=== PATIENT | female | born 1945 | race Two or more races ===

== ENCOUNTER 2024-10-08 15:06 | Inpatient (IN) | payer OTHER ==
[~2024-10-08] VITALS: Ht 152.4 cm; Wt 47.6 kg
--- NOTE | 2024-10-08 15:28 | ED.PDOC ---
History of Present Illness HPI Comments 79-year-old female brought in by EMS presents with a chief complaint of muscle pain and hip pain s/p mechanical fall at home. Patient had a ground-level mechanical fall at home and landed on her left side. Patient is now presenting with pain to her left hip, left knee, and left ankle. Patient has no deformities to any of her extremities, did not hit her head, and had no loss of consciousness. Patient is alert and oriented. No other symptoms or modifying factors present at this time. Patient received fentanyl in the field and states that most of her pain is currently controlled. Vital signs were stable on arrival. Chief Complaint: Fall Injury Time Seen by MD: 15:26 Reviewed Notes: Nurses Notes, Auto Clutch Specialist Notes, Medications, Allergies Allergies: Coded Allergies: NO KNOWN ALLERGIES (Unverified , 10/08/24) Information Source: Patient, Emergency Med Personnel Mode of Arrival: EMS Severity: Moderate Timing: Minutes Duration: Since onset Prehospital treatment: None Past Medical History PAST MEDICAL HISTORY: Denies Surgical History: Denies all surgeries REGIONAL AGRONOMIST History: No Pertinent REGIONAL AGRONOMIST History Family History Family History: Reviewed,noncontributory to illness Social History Smoker: Non-Smoker Alcohol: Denies ETOH Use Drugs: Denies Drug Use Lives In: Home Constitutional: denies: chills, diaphoresis, fatigue, fever, malaise, sweats, weakness, others EENTM: denies: blurred vision, double vision, ear bleeding, ear discharge, ear drainage, ear pain, ear ringing, eye pain, eye redness, hearing loss, mouth pain, mouth swelling, nasal discharge, nose bleeding, nose congestion, nose pain, photophobia, tearing, throat pain, throat swelling, voice changes, others Respiratory: denies: cough, hemoptysis, orthopnea, SOB at rest, shortness of breath, SOB with excertion, stridor, wheezing, others Cardiovascular: denies: chest pain, dizzy spells, diaphoresis, Dyspnea on exertion, edema, irregular heart beat, left arm pain, lightheadedness, palpitations, PND, syncope, others Gastrointestinal: denies: abdomen distended, abdominal pain, blood streaked bowels, constipated, diarrhea, dysphagia, difficulty swallowing, hematemesis, melena, nausea, poor appetite, poor fluid intake, rectal bleeding, rectal pain, vomiting, others Genitourinary: denies: abnormal vagina bleeding, burning, dyspareunia, dysuria, flank pain, frequency, hematuria, incontinence, pain, , vagina discharge, urgency, others Neurological: denies: dizziness, fainting, headache, left sided numbness, left sided weakness, numbness, paresthesia, pre-existing deficit, right sided numbness, right sided weakness, seizure, speech problems, tingling, tremors, weakness, others Musculoskeletal: reports: joint pain, muscle pain; denies: back pain, gout, joint swelling, muscle stiffness, neck pain, others Integumetry: denies: bruises, change in color, change in hair/nails, dryness, laceration, lesions, lumps, rash, wounds, others Allergic/Immunocompromised: denies: Difficulty Healing, Frequent Infections, Hives, Itching, others Hematologic/Lymphatic: denies: anemia, blood clots, easy bleeding, easy bruising, swollen glands, others Endocrine: denies: excessive hunger, excessive sweating, excessive thirst, excessive urination, flushing, intolerance to cold, intolerance to heat, unexplained weight gain, unexplained weight loss, others Psychiatric: denies: anxiety, bipolar disorder, depression, hopeless, panic disorder, schizophrenia, sleepless, suicidal, others All Other Systems: Reviewed and Negative Physical Exam General Appearance: Mild Distress (Patient was in mild distress status post fentanyl dosing by EMS. Most of the pain has been controlled.), Normal HEENT: Normal ENT Inspection, Pharynx Normal, TMs Normal Neck: Full Range of Motion, Non-Tender, Normal, Normal Inspection Respiratory: Chest Non-Tender, Lungs Clear, No Accessory Muscle Use, No Respiratory Distress, Normal Breath Sounds Cardiovascular: No Edema, No JVD, No Murmur, No Gallop, Normal Peripheral Pulses, Regular Rate/Rhythm Breast Exam: Deferred Gastrointestinal: No Organomegaly, Non Tender, No Pulsatile Mass, Normal Bowel Sounds, Soft Genitalia: Deferred Pelvic: Deferred Rectal: Deferred Extremities: Other (Diffuse left-sided hip pain extending into the pubic symphysis region. Pain extends down the patient's leg and bypasses the knee but continues into the ankle and foot. Significant reduced range of motion from the hip distally. Distal neurovascularly intact.) Musculoskeletal : Apperance: Normal Neurologic: Alert, Normal Affect, Normal Mood Cerebellar Function: NOT DONE Reflexes: NOT DONE Skin: Dry, Normal Color, Warm Lymphatic: No Adenopathy Was a procedure done? Was a procedure done?: No Differential Dx Considerations may include: Hip fracture, pelvic fracture, femoral fracture, knee fracture, tib-fib fracture, ankle fracture, hip contusion, fall X-Ray, Labs, Meds, VS Vital Signs Date Time Temp Pulse Resp B/P (MAP) Pulse Ox O2 Delivery O2 Flow Rate FiO2 10/08/24 15:20 98.6 62 12 133/65 (87) 97 98.6 10/08/24 15:20 98.6 62 12 133/65 (87) 97 X-Ray, Labs, Meds, VS Comment All studies performed the ED were evaluated by me personally. Imaging studies revealed an acutely mildly displaced fractures of the left superior and inferior pubic rami. Patient will be admitted for pain management, orthopedic evaluation and probable care home transfer. Time of 1ST Reevaluation: 17:09 Reevaluation 1ST: Improved Consultation: PCP, Other (Orthopedist) Patient Education/Counseling: Diagnosis, Treatment, Prognosis Family Education/Counseling: Diagnosis, Treatment, Prognosis Departure 1 Departure Time of Disposition: 17:10 Impression: Primary Impression: Fracture of pubic ramus Disposition: 09 ADMITTED INPATIENT Condition: Stable Discharged With: Self Critical Care Note Critical Care Time?: No Stability Stability form required: No I personally scribed for KIKO BAZZI PAC ([email or web address]) on 10/08/24 at 15:28. Electronically submitted by William Eckert ([email or web address]). KIKO BAZZI PAC Oct 08, 2024 15:28
--- NOTE | 2024-10-08 16:17 | DVH ---
Procedure: CT LEFT LOWER EXTREMITY W/O CON 10/08/2024 03:22 PM Indication: Trauma/ground level fall Comparison Study: None Technique: Axial images left lower extremity from the hip to ankle were obtained and reformatted in c oronal and sagittal planes. All CT scans at this medical facility are performed using dose modulation techniques as appropriate t o a performed exam including the following: Automated exposure control was utilized; adjustment of th e MA and/or KV according to patient size; and use of iterative reconstruction technique. CT Dose: CTDI volume is 7.75 mGy. Dose-length product is 650.24 mGy*cm FINDINGS: Bones: Acute mildly displaced fractures of the superior and inferior pubic rami adjacent to the pubic body noted symphysis pubis is intact. The hip joint, femur, knee joint, ankle joint, tibia and fibul a are intact. Soft tissues: Diffuse atherosclerotic calcification noted. No subcutaneous hematoma. No joint effusi on. IMPRESSION: 1. Acute mildly displaced fractures of the left superior and inferior pubic rami.
[2024-10-08] MEDS: HYDROmorphone HCL 2 MG/ML VL/or syr IV ONE (17:45)
[2024-10-08 17:51] LABS: Basophils # (auto) 0 10 ^3/uL (0-0.2); Basophils % (auto) 0.1 % (0.0-2.0); Eosinophils # (auto) 0 10 ^3/uL (0-0.8); Eosinophils % (auto) 0.1 % (0.0-7.0); Hematocrit 37.7 % (36.0-46.0); Hemoglobin 12.6 g/dL (12.2-16.2); Lymphocytes # (auto) 0.9 10 ^3/uL (0.4-5.4); Lymphocytes % (auto) 6.9 % (10.0-50.0); Mean Corpuscular Hemoglobin 29.7 pg (28.0-32.0); Mean Corpuscular Hgb Conc. 33.3 g/dL (32.0-36.0); Monocytes # (auto) 0.5 10 ^3/uL (0-1.3); Monocytes % (auto) 3.8 % (0.0-12.0); Neutrophils # (auto) 11.2 10 ^3/uL (1.6-8.6); Neutrophils % (auto) 89.1 % (37.0-80.0); Nucleated Red Blood Cells % 0.1 %; Platelet Count (auto) 165 10^3/uL (140-450); Red Blood Cells 4.24 10^6/uL (4.0-5.20); Red Cell Distribution Width 13.4 % (11.8-14.3); White Blood Cell 12.6 10^3/uL (4.4-10.8)
[2024-10-08 18:06] LABS: Alanine Aminotransferase 34 U/L (7-40); Albumin 4.2 g/dL (3.2-4.8); Alkaline Phosphatase 110 U/L (46-116); Anion Gap 11 (5-15); Aspartate Aminotransferase 39 U/L (13-40); BUN/Creatinine Ratio 34.5 (10.0-20.0); Blood Urea Nitrogen 20 mg/dL (9-23); Calcium 10.1 mg/dL (8.7-10.4); Carbon Dioxide 24 mmol/L (20-31); Chloride 106 mmol/L (98-107); Potassium 4.1 mmol/L (3.5-5.1); Sodium 141 mmol/L (136-145)
[2024-10-08 18:07] LABS: Bilirubin, Total 0.7 mg/dL (0.2-1.0); Glucose 126 mg/dL (74-106); Total Protein 6.6 g/dL (5.7-8.2)
[2024-10-08 19:25] LABS: Urine Bacteria None Seen /hpf (None Seen)
[2024-10-08 19:39] LABS: Urine Blood TRACE /uL (Negative); Urine Clarity Turbid (Clear); Urine Color Yellow (Yellow); Urine Hyaline Cast FEW /lpf (0 - 2); Urine Mucus FEW (None Seen); Urine Protein, UAD Negative (Negative); Urine Specific Gravity 1.014 (1.001-1.035); Urine Squamous Epithelial Cell None Seen /hpf (<5); Urine Urobilinogen Normal (Negative); Urine WBC 4 /HPF (0-5)
[2024-10-08] MEDS ORDERED: hydrALAZINE HCL 20 MG/ML VL IV PRN (20:30)
[2024-10-08] MEDS ORDERED: ONDANSETRON HCL 4 MG/2 ML VIAL IV PRN (20:30)
[2024-10-08] MEDS ORDERED: ACETAMINOPHEN 325 MG TAB PO PRN (20:30)
[2024-10-08] MEDS: SODIUM CHLORIDE 0.9% 1,000 ML IV SCH (21:10)
[2024-10-08] MEDS: ATORVASTATIN 20 MG TAB PO SCH (21:37)
--- NOTE | 2024-10-08 21:49 | DVHHP2 ---
History of Present Illness Reason for Visit: Fracture of pubic ramus History of Present Illness The patient is a 79-year-old female with past medical history of hypertension and hyperlipidemia presented to [facility] ED with complaint of hip pain status post mechanical fall at home. Patient reports he had a ground level mechanical fall at home landing on her left hip with sustained pain injury in her left hip, left knee, left ankle, getting worse that prompted this visit. Patient was seen and evaluated in the ED, laboratory data shows WBC 12.6, platelets 165, sodium 141, potassium 4.1, BUN 20, creatinine 0.58, GFR 91, glucose 126, troponin seven, blood pressure 128/51, heart rate 74, temperature 98.0 F, O2 saturation 97% on oxygen. Left lower extremity CT revealing acute mildly displaced fracture of the left superior and inferior pubic rami. Please see medication orders section in the computer. On my assessment, patient denied chest pain, no headache, no dizziness, no loss of consciousness, no abdominal pain, no nausea, no vomiting, no fever, no chills. Patient was admitted for further evaluation and medical management. Past Medical History Hypertension, HLD Past Surgical History Denies all surgeries Family History Reviewed, noncontributory to the management of this case. Past Social History The patient lives at home, denies smoking, alcohol or illicit drugs abuse. Review of Systems Constitutional: Yes: Weakness; No: Fever, Chills, Sweats, Malaise, Other Eyes: No: Pain, Vision change, Conjunctivae inflammation, Eyelid inflammation, Other, Redness ENT: No: Ear pain, Ear discharge, Nose pain, Nose discharge, Nose congestion, Mouth pain, Mouth swelling, Throat pain, Throat swelling, Other Respiratory: No: Cough, Dry, Shortness of breath, SOB with excertion, Wheezing, Hemoptysis, Pleuritic Pain, Sputum, Wheezing, Other Cardiovascular: No: Chest Pain, Palpitations, Orthopnea, Paroxysmal Noc. Dyspnea, Edema, Lt Headedness, Other Gastrointestinal: No: Nausea, Vomiting, Abdominal Pain, Diarrhea, Constipation, Melena, Hematochezia, Other Genitourinary: No Dysuria, No Frequency, No Incontinence, No Hematuria, No Retention, No Other Musculoskeletal: other (Left hip pain); No: neck pain, shoulder pain, arm pain, back pain, hand pain, leg pain, foot pain Skin: No: Rash, Lesions, Jaundice, Bruising, Other Neurological: No: Weakness, Numbness, Incoordination, Change in speech, Con fusion, Seizures, Other Allergies: Coded Allergies: NO KNOWN ALLERGIES (Unverified , 10/08/24) Medications Current Medications Medications Dose Ordered Sig/Trina Route Start Time Stop Time Status Last Admin Dose Admin Amlodipine Besylate 5 mg DAILY PO 10/09/24 10:00 Atorvastatin Calcium 20 mg HS PO 10/08/24 22:00 10/08/24 21:37 20 MG Hydralazine HCl 10 mg Q6HP PRN IV 10/08/24 20:30 Sodium Chloride 1,000 ml @ 60 mls/hr [id number] IV 10/08/24 20:30 10/08/24 21:10 60 MLS/HR Acetaminophen/ Hydrocodone Bitart 1 tab Q4HP PRN PO 10/08/24 20:30 Ondansetron HCl 4 mg Q4HP PRN IV 10/08/24 20:30 Docusate Sodium 100 mg BIDPRN PRN PO 10/08/24 20:30 Acetaminophen 650 mg Q6HP PRN PO 10/08/24 20:30 Morphine Sulfate 2 mg Q4HPRN PRN IV 10/08/24 20:30 Exam Vital Signs Vital Signs Date Time Temp Pulse Resp B/P (MAP) Pulse Ox O2 Delivery O2 Flow Rate FiO2 10/08/24 21:30 66 1 123/41 (68) 98 10/08/24 19:30 98.0 98.0 10/08/24 19:25 Nasal Cannula* 2 28 General Appearance: Alert, Oriented X3, Cooperative, No acute distress HEENT: Atraumatic, PERRLA, EOMI, Mucous membr. moist/pink Respiratory: Clear to auscultation, Normal air movement Cardiovascular: Regular rate, Normal S1, Normal S2, No murmurs Abdominal: Normal bowel sounds, Soft, No tenderness, No hepatospenomegaly, No masses Extremities: No clubbing, No cyanosis, No edema, Normal pulses, Other (Left hip pain) Skin: No rashes, No breakdown, No significant lesion Neuro: Normal speech, Normal tone, Sensation intact, Cranial nerves 3-12 NL, Reflexes 2+, Other (Generalized weakness) Psych/Mental Status: Mental status NL, Mood NL Labs/Xrays Labs Test 10/08/24 19:00 10/08/24 17:26 Range/Units Urine Color Yellow Yellow Urine Clarity Turbid H Clear Urine pH 7.0 5.0-9.0 Urine Specific [place] 1.014 1.001-1.035 Urine Protein Negative Negative Urine Ketones Trace Negative Urine Blood Trace H Negative /uL Urine Nitrite Negative Negative Urine Bilirubin Negative Negative Urine Urobilinogen Normal Negative mg/dL Urine Leukocyte Esterase Negative Negative /uL Urine RBC 6 0 - 4 /hpf Urine Microscopic WBC 4 0-5 /HPF Urine Squamous Epithelial Cells None seen <5 /hpf Urine Bacteria None seen None Seen /hpf Urine Hyaline Casts Few 0 - 2 /lpf Urine Mucus Few None Seen Urine Glucose Normal Normal mg/dL White Blood Count 12.6 H 4.4-10.8 10^3/uL Red Blood Count 4.24 4.0-5.20 10^6/uL Hemoglobin 12.6 12.2-16.2 g/dL Hematocrit 37.7 36.0-46.0 % Mean Corpuscular Volume 89.0 80.0-100.0 fL Mean Corpuscular Hemoglobin 29.7 28.0-32.0 pg Mean Corpuscular Hemoglobin Concent 33.3 32.0-36.0 g/dL Red Cell Distribution Width 13.4 11.8-14.3 % Platelet Count 165 140-450 10^3/uL Mean Platelet Volume 9.8 6.9-10.8 fL Neutrophils (%) (Auto) 89.1 H 37.0-80.0 % Lymphocytes (%) (Auto) 6.9 L 10.0-50.0 % Monocytes (%) (Auto) 3.8 0.0-12.0 % Eosinophils (%) (Auto) 0.1 0.0-7.0 % Basophils (%) (Auto) 0.1 0.0-2.0 % Neutrophils # (Auto) 11.2 H 1.6-8.6 10 ^3/uL Lymphocytes # (Auto) 0.9 0.4-5.4 10 ^3/uL Monocytes # (Auto) 0.5 0-1.3 10 ^3/uL Eosinophils # (Auto) 0 0-0.8 10 ^3/uL Basophils # (Auto) 0 0-0.2 10 ^3/uL Nucleated Red Blood Cells 0.1 % Sodium Level 141 136-145 mmol/L Potassium Level 4.1 3.5-5.1 mmol/L Chloride Level 106 98-107 mmol/L Carbon Dioxide Level 24 20-31 mmol/L Anion Gap 11 5-15 Blood Urea Nitrogen 20 9-23 mg/dL Creatinine 0.58 0.550-1.02 mg/dL Glomerular Filtration Rate Calc 91 >90 mL/min BUN/Creatinine Ratio 34.5 H 10.0-20.0 Serum Glucose 126 H 74-106 mg/dL Lactic Acid Level 1.8 0.4-2.0 mmol/L Calcium Level 10.1 8.7-10.4 mg/dL Total Bilirubin 0.7 0.2-1.0 mg/dL Aspartate Amino Transferase (AST) 39 13-40 U/L Alanine Aminotransferase (ALT) 34 7-40 U/L Alkaline Phosphatase 110 46-116 U/L Troponin I High Sensitivity 7 </=34 ng/L Total Protein 6.6 5.7-8.2 g/dL Albumin 4.2 3.2-4.8 g/dL PATIENT: DEANNA HARRELL ACCT: [id number] UNIT: [id number] : 1945 LOC: ER ROOM / BED: / AGE / SEX: 79 / F ADM STATUS: REG ER SERVICE [id number] ORDERING PHYSICIAN: KIKO BAZZI PAC PROCEDURE(s): LLEX - LEFT LOWER EXTREMITY W/O CON REASON: Trauma/ground level fall ORDER NUMBER(s): [id number], ACCESSION NUMBER(s): [id number] Procedure: CT LEFT LOWER EXTREMITY W/O CON 10/08/2024 03:22 PM Indication: Trauma/ground level fall Comparison Study: None Technique: Axial images left lower extremity from the hip to ankle were obtained and reformatted in coronal and sagittal planes. All CT scans at this medical facility are performed using dose modulation techniques as appropriate to a performed exam including the following: Automated exposure control was utilized; adjustment of the MA and/or KV according to patient size; and use of iterative reconstruction technique. CT Dose: CTDI volume is 7.75 mGy. Dose-length product is 650.24 mGy*cm FINDINGS: Bones: Acute mildly displaced fractures of the superior and inferior pubic rami adjacent to the pubic body noted symphysis pubis is intact. The hip joint, femur, knee joint, ankle joint, tibia and fibula are intact. Soft tissues: Diffuse atherosclerotic calcification noted. No subcutaneous hematoma. No joint effusion. IMPRESSION: 1. Acute mildly displaced fractures of the left superior and inferior pubic rami. Assessment/Plan Assessment/Plan Generalized weakness Fall with injury Fracture of pubic ramus Leukocytosis, unspecified Plan 1. Admit to telemetry unit 2. Breathing treatment 3. Pain control management 4. IV antibiotic management 5. Management of fluids and electrolytes 6. Consultation for orthopedic surgeon 7. Diagnostic test left lower extremity CT 8. DVT prophylaxis-on Lovenox 9. Repeat labs CBC, CMP in a.m. 10. Home medication reviewed and reconciled 11. Continue with current medical management 12. Treatment plan discussed with patient and RN. Patient verbalized understanding. Plan discussed with: Patient, Other (RN) My Orders Orders - ELIGIO DALE DNP Procedure Category Date Status Time * Orthopedic Consult CONS 10/08/24 Transmitted 20:29 Amlodipine Tablet PHA 10/09/24 In Process (Norvasc Tablet) 10:00 Atorvastatin (Lipitor) PHA 10/08/24 In Process 22:00 Hydralazine Injection PHA 10/08/24 In Process (Apresoline Inject 20:30 Allergies ASHLEY 10/08/24 In Process 20:29 Code Status CODE 10/08/24 Transmitted 20:29 Sodium Chloride 0.9% PHA 10/08/24 In Process 20:30 Oxygen Per Hour RT 10/08/24 Transmitted 20:29 Hydrocodone-Acet PHA 10/08/24 In Process 5/325mg Tab ([place] 20:30 Ondansetron Hcl PHA 10/08/24 In Process (Zofran) 20:30 Docusate Sodium PHA 10/08/24 In Process Capsule (Colace 20:30 Fall Risk Precautions ASHLEY 10/08/[address] 20:29 Complete Blood Count LAB 10/09/24 Verified 04:00 Comprehensive LAB 10/09/24 Verified Metabolic Panel 04:00 Cardiac DIET 10/09/24 Transmitted Diet-2gna,Lofat,Lochol Breakfast Condition: Serious ASHLEY 10/08/24 In Process 20:29 Acetaminophen Tablet PHA 10/08/24 In Process (Tylenol Tablet) 20:30 Morphine Sulfate PHA 10/08/24 In Process Injection 20:30 Sequential [facility] 10/08/24 In Process Compression Device Admit ADMIT 10/08/24 Verified 21:48 Nitroglycerin PHA 10/08/24 Verified Sublingual (Ntrostat 22:00 Morphine Sulfate PHA 10/08/24 Verified Injection 22:00 Notify Of Changes [facility] 10/08/24 Verified From Base 21:48 Cut In Station Operator For [facility] 10/08/24 Verified 24 Hours 21:48 Emergency Dysrhythmia [facility] 10/08/24 Verified Protocol 21:48 Rhythm Strips Once [facility] 10/08/24 Verified Every Shift 21:48 Oxygen By Nasal RT 10/08/24 Verified Cannula 21:48 Problem List: (1) Generalized weakness (2) Fall with injury (3) Fracture of pubic ramus (4) Leukocytosis, unspecified Date of Service: Oct 08, 2024 Billing Provider: ELIGIO DALE DNP Common Visit Codes: [id number] INP/OBS CARE (HIGH) ELIGIO DALE DNP Oct 08, 2024 21:49
[2024-10-08] MEDS ORDERED: NITROGLYCERIN 0.4 MG SL TAB SL PRN (22:00)
[2024-10-08] MEDS ORDERED: MORPHINE SULFATE INJ 2 MG/ml SYRG IV PRN (22:00)
[2024-10-09] VITALS (9 sets, daily range): BP systolic 107–145; BP diastolic 48–73; PULSE 56–74; RESP 14–19; TEMP 97.8–98.6; O2SAT 99–100
[2024-10-09] MEDS: MORPHINE SULFATE INJ 2 MG/ml SYRG IV PRN (03:16)
[2024-10-09] MEDS: cefTRIAXone 1GM/50ML D5W 50 ML IV ONE (03:26)
[2024-10-09] MEDS: cefTRIAXone 1GM/50ML D5W 50 ML IV SCH (03:34)
[2024-10-09 08:48] LABS: Basophils # (auto) 0 10 ^3/uL (0-0.2); Basophils % (auto) 0.2 % (0.0-2.0); Eosinophils # (auto) 0 10 ^3/uL (0-0.8); Eosinophils % (auto) 0.1 % (0.0-7.0); Hematocrit 32.1 % (36.0-46.0); Hemoglobin 10.8 g/dL (12.2-16.2); Lymphocytes # (auto) 0.8 10 ^3/uL (0.4-5.4); Mean Corpuscular Hemoglobin 30.2 pg (28.0-32.0); Mean Corpuscular Hgb Conc. 33.6 g/dL (32.0-36.0); Mean Corpuscular Volume 89.9 fL (80.0-100.0); Monocytes # (auto) 0.6 10 ^3/uL (0-1.3); Monocytes % (auto) 5.9 % (0.0-12.0); Neutrophils # (auto) 9.3 10 ^3/uL (1.6-8.6); Neutrophils % (auto) 86.8 % (37.0-80.0); Platelet Count (auto) 114 10^3/uL (140-450); Red Blood Cells 3.58 10^6/uL (4.0-5.20); Red Cell Distribution Width 13.2 % (11.8-14.3); White Blood Cell 10.7 10^3/uL (4.4-10.8)
[2024-10-09 09:02] LABS: Albumin 3.8 g/dL (3.2-4.8); Alkaline Phosphatase 89 U/L (46-116); Anion Gap 8 (5-15); BUN/Creatinine Ratio 24.6 (10.0-20.0); Bilirubin, Total 0.8 mg/dL (0.2-1.0); Blood Urea Nitrogen 15 mg/dL (9-23); Calcium 9.1 mg/dL (8.7-10.4); Carbon Dioxide 25 mmol/L (20-31); Sodium 141 mmol/L (136-145); Total Protein 6.1 g/dL (5.7-8.2)
[2024-10-09 09:03] LABS: Alanine Aminotransferase 53 U/L (7-40); Aspartate Aminotransferase 51 U/L (13-40); Chloride 108 mmol/L (98-107); Glucose 142 mg/dL (74-106)
[2024-10-09] MEDS: amLODIPine BESYLATE 5 MG TAB PO SCH (10:39)
[2024-10-09] MEDS: HYDROcodone-ACET 5/325MG TAB PO PRN (16:20)
--- NOTE | 2024-10-09 19:37 | DVHPN2 ---
Subjective in bed resting, pain controlled Changes from previous H/P or p: No Changes Eyes: No Pain, No Vision change, No Conjunctivae inflammation, No Eyelid inflammation, No Other, No Redness ENT: No Ear pain, No Ear discharge, No Nose pain, No Nose discharge, No Nose congestion, No Mouth pain, No Mouth swelling, No Throat pain, No Throat swelling, No Other Cardiovascular: No Chest Pain, No Palpitations, No Orthopnea, No Paroxysmal Noc. Dyspnea, No Edema, No Lt Headedness, No Other Respiratory: No Cough, No Dry, No Shortness of breath, No SOB with excertion, No Wheezing, No Hemoptysis, No Pleuritic Pain, No Sputum, No Other Gastrointestinal: No Nausea, No Vomiting, No Abdominal Pain, No Diarrhea, No Constipation, No Melena, No Hematochezia, No Other Genitourinary: No Dysuria, No Frequency, No Incontinence, No Hematuria, No Retention, No Other Musculoskeletal: other (Left hip pain); No neck pain, No shoulder pain, No arm pain, No back pain, No hand pain, No leg pain, No foot pain Skin: No Rash, No Lesions, No Jaundice, No Bruising, No Other Objective Vitals Vital Signs Date Time Temp Pulse Resp B/P (MAP) Pulse Ox O2 Delivery O2 Flow Rate FiO2 10/09/24 16:23 98.0 68 16 145/73 (97) 99 98.0 10/09/24 08:10 Nasal Cannula* 2 28 Intake/Output Intake and Output 10/09/24 05:00 Intake Total 240 ml Output Total 200 ml Balance 40 ml Intake Oral 0 ml IV Total 240 ml Output Urine Total 200 ml General Appearance: Alert, Oriented X3 Lungs: Clear to auscultation Cardiovascular: Regular rate, Normal S1 Medications Current Medications Medications Dose Ordered Sig/Trina Route Start Time Stop Time Status Last Admin Dose Admin Amlodipine Besylate 5 mg DAILY PO 10/09/24 10:00 10/09/24 10:39 5 MG Atorvastatin Calcium 20 mg HS PO 10/08/24 22:00 10/08/24 21:37 20 MG Hydralazine HCl 10 mg Q6HP PRN IV 10/08/24 20:30 Sodium Chloride 1,000 ml @ 60 mls/hr [id number] IV 10/08/24 20:30 10/09/24 13:48 60 MLS/HR Acetaminophen/ Hydrocodone Bitart 1 tab Q4HP PRN PO 10/08/24 20:30 10/09/24 16:20 1 TAB Ondansetron HCl 4 mg Q4HP PRN IV 10/08/24 20:30 Docusate Sodium 100 mg BIDPRN PRN PO 10/08/24 20:30 Acetaminophen 650 mg Q6HP PRN PO 10/08/24 20:30 Morphine Sulfate 2 mg Q4HPRN PRN IV 10/08/24 20:30 10/09/24 03:16 2 MG Nitroglycerin 0.4 mg Q5MINP PRN SL 10/08/24 22:00 Morphine Sulfate 2 mg Q30M PRN IV 10/08/24 22:00 Ceftriaxone Sodium 50 ml @ 100 mls/hr Q24H IV 10/09/24 04:00 Laboratory Results Laboratory Tests 10/09/24 08:26 Chemistry Test 10/09/24 08:26 Albumin 3.8 g/dL (3.2-4.8) Calcium Level 9.1 mg/dL (8.7-10.4) Total Protein 6.1 g/dL (5.7-8.2) LFT Test 10/09/24 08:26 Alanine Aminotransferase (ALT) 53 U/L (7-40) H Alkaline Phosphatase 89 U/L (46-116) Aspartate Amino Transferase (AST) 51 U/L (13-40) H Total Bilirubin 0.8 mg/dL (0.2-1.0) Urinalysis Test 10/08/24 19:00 Urine Color Yellow (Yellow) Urine Clarity Turbid (Clear) H Urine pH 7.0 (5.0-9.0) Urine Specific [place] 1.014 (1.001-1.035) Urine Protein Negative (Negative) Urine Ketones Trace (Negative) Urine Blood Trace /uL (Negative) H Urine Nitrite Negative (Negative) Urine Bilirubin Negative (Negative) Urine Urobilinogen Normal mg/dL (Negative) Urine Leukocyte Esterase Negative /uL (Negative) Urine RBC 6 /hpf (0 - 4) Urine Microscopic WBC 4 /HPF (0-5) Urine Squamous Epithelial Cells None seen /hpf (<5) Urine Bacteria None seen /hpf (None Seen) Urine Hyaline Casts Few /lpf (0 - 2) Urine Mucus Few (None Seen) Urine Glucose Normal mg/dL (Normal) Assessment/Plan Assessment/Plan Generalized weakness Fall with injury Fracture of pubic ramus Leukocytosis, unspecified Plan IV abx lovenox pending ortho consult pain control PT eval Plan discussed with: Patient Date of Service: Oct 09, 2024 Billing Provider: BETTY SIERRA MD Common Visit Codes: [id number] INP/OBS CARE(HIGH) BETTY SIERRA MD Oct 09, 2024 19:37
[2024-10-09] MEDS: DOCUSATE SOD 100 MG CAP PO PRN (21:27)
[2024-10-10] VITALS (7 sets, daily range): BP systolic 117–147; BP diastolic 56–88; PULSE 58–78; RESP 18–20; TEMP 98–98.6; O2SAT 98–100
--- NOTE | 2024-10-10 11:26 | DVHPN2 ---
Subjective The patient is seen and examined at bedside. The patient complained of severe pain in the abdomen, pelvis and leg. Reviewed: Care Plan, H&P, Labs, Medications, Previous Orders, Radiology Changes from previous H/P or p: No Changes Eyes: No Pain, No Vision change, No Conjunctivae inflammation, No Eyelid inflammation, No Other, No Redness ENT: No Ear pain, No Ear discharge, No Nose pain, No Nose discharge, No Nose congestion, No Mouth pain, No Mouth swelling, No Throat pain, No Throat swelling, No Other Cardiovascular: No Chest Pain, No Palpitations, No Orthopnea, No Paroxysmal Noc. Dyspnea, No Edema, No Lt Headedness, No Other Respiratory: No Cough, No Dry, No Shortness of breath, No SOB with excertion, No Wheezing, No Hemoptysis, No Pleuritic Pain, No Sputum, No Other Gastrointestinal: No Nausea, No Vomiting, No Abdominal Pain, No Diarrhea, No Constipation, No Melena, No Hematochezia, No Other Genitourinary: No Dysuria, No Frequency, No Incontinence, No Hematuria, No Retention, No Other Musculoskeletal: other (Left hip pain); No neck pain, No shoulder pain, No arm pain, No back pain, No hand pain, No leg pain, No foot pain Skin: No Rash, No Lesions, No Jaundice, No Bruising, No Other Objective Vitals Vital Signs Date Time Temp Pulse Resp B/P (MAP) Pulse Ox O2 Delivery O2 Flow Rate FiO2 10/10/24 10:23 61 16 128/55 10/10/24 08:57 98.0 99 98.0 10/09/24 20:00 Nasal Cannula* 2 28 Intake/Output Intake and Output 10/10/24 07:00 Intake Total 1390 ml Output Total 850 ml Balance 540 ml Intake Oral 900 ml IV Total 490 ml Output Urine Total 850 ml General Appearance: Alert, Oriented X3, Cooperative, No acute distress HEENT: Atraumatic, PERRLA, EOMI, Mucous membr. moist/pink Neck: Supple Lungs: Clear to auscultation, Normal air movement Cardiovascular: Regular rate, Normal S1, Normal S2, No murmurs, Gallops Abdomen: Normal bowel sounds, Soft, No tenderness Musculoskeletal: Other (Limited range of motion bilateral lower extremity due to pelvic fracture) Neuro: Cranial nerves 3-12 NL Psych/Mental Status: Mental status NL Medications Current Medications Medications Dose Ordered Sig/Trina Route Start Time Stop Time Status Last Admin Dose Admin Amlodipine Besylate 5 mg DAILY PO 10/09/24 10:00 10/10/24 09:53 5 MG Atorvastatin Calcium 20 mg HS PO 10/08/24 22:00 10/09/24 21:27 20 MG Hydralazine HCl 10 mg Q6HP PRN IV 10/08/24 20:30 Sodium Chloride 1,000 ml @ 60 mls/hr [id number] IV 10/08/24 20:30 10/10/24 07:29 60 MLS/HR Acetaminophen/ Hydrocodone Bitart 1 tab Q4HP PRN PO 10/08/24 20:30 10/09/24 21:27 1 TAB Ondansetron HCl 4 mg Q4HP PRN IV 10/08/24 20:30 Docusate Sodium 100 mg BIDPRN PRN PO 10/08/24 20:30 10/09/24 21:27 100 MG Acetaminophen 650 mg Q6HP PRN PO 10/08/24 20:30 Morphine Sulfate 2 mg Q4HPRN PRN IV 10/08/24 20:30 10/10/24 09:53 2 MG Nitroglycerin 0.4 mg Q5MINP PRN SL 10/08/24 22:00 Morphine Sulfate 2 mg Q30M PRN IV 10/08/24 22:00 Ceftriaxone Sodium 50 ml @ 100 mls/hr Q24H IV 10/09/24 04:00 10/10/24 03:07 100 MLS/HR Laboratory Results Laboratory Tests 10/09/24 08:26 Urinalysis Test 10/08/24 19:00 Urine Color Yellow (Yellow) Urine Clarity Turbid (Clear) H Urine pH 7.0 (5.0-9.0) Urine Specific [place] 1.014 (1.001-1.035) Urine Protein Negative (Negative) Urine Ketones Trace (Negative) Urine Blood Trace /uL (Negative) H Urine Nitrite Negative (Negative) Urine Bilirubin Negative (Negative) Urine Urobilinogen Normal mg/dL (Negative) Urine Leukocyte Esterase Negative /uL (Negative) Urine RBC 6 /hpf (0 - 4) Urine Microscopic WBC 4 /HPF (0-5) Urine Squamous Epithelial Cells None seen /hpf (<5) Urine Bacteria None seen /hpf (None Seen) Urine Hyaline Casts Few /lpf (0 - 2) Urine Mucus Few (None Seen) Urine Glucose Normal mg/dL (Normal) Labs and/or images reviewed: Labs reviewed by me Assessment/Plan Assessment/Plan Generalized weakness Fall with injury Fracture of pubic ramus Leukocytosis, unspecified Shoulder contusion Plan: Continuing current management. Continuing with pain medication. Orthopedic surgeon input appreciated. The patient needs a sling for her shoulder. The patient need weight-bearing as tolerated with physical therapy. Pain medication for pain control. The patient may need [facility]. Discussed with and daughter at bedside. They wanted to think about it. This medical document was created using an electronic medical record system with [employer] direct computerized dictation system. Although this document has been carefully reviewed, there may still be some phonetic and typographical errors. These areas are purely typographical due to imperfections of the software programs, and do not reflect any compromise in the patient's medical care. Plan discussed with: Patient, Spouse, Other (Rn) Date of Service: Oct 10, 2024 Billing Provider: ROOSEVELT LAWSON MD Common Visit Codes: [id number] INP/OBS CARE(HIGH) ROOSEVELT LAWSON MD Oct 10, 2024 11:25
--- NOTE | 2024-10-10 13:38 | DVH ---
EXAM: XY L SHOULDER 2+ VIEW XRAY CLINICAL INDICATION: left shoulder pain, s/p fall TECHNIQUE: XY L SHOULDER 2+ VIEW XRAY Comparison: None FINDINGS/IMPRESSION: There is no evidence of acute fracture or dislocation. The visualized joint space is well maintained. The alignment is anatomical. There is no radiopaque foreign body.
--- NOTE | 2024-10-10 14:31 | DVHINCON2 ---
Date of service: Oct 10, 2024 Referring Physician ED Reason for Consultation left hip pain History of Present Illness The patient is a 79-year-old female with past medical history of hypertension, stroke, and hyperlipidemia presented to [facility] ED with complaint of hip pain status post mechanical fall at home. Patient reports she had a ground level mechanical fall at home landing on her left hip with sustained pain injury in her left hip and shoulder. Left lower extremity CT revealing acute mildly displaced fracture of the left superior and inferior pubic rami. Household ambulator with asst device.. Past Medical History Hypertension, HLD, recent stroke left side with residual weakness and poor balance Past Surgical History Denies all surgeries Family History Reviewed, noncontributory to the management of this case. Past Social History lives with her Family History: Patient reports no known family medical history. Allergies: Coded Allergies: NO KNOWN ALLERGIES (Unverified , 10/08/24) Vital Signs Vital Signs Date Time Temp Pulse Resp B/P (MAP) Pulse Ox O2 Delivery O2 Flow Rate FiO2 10/10/24 10:23 61 16 128/55 10/10/24 08:57 98.0 99 98.0 10/10/24 08:00 Nasal Cannula* 2 28 Physical Exam wdwn female in mod distress severe left hip pain with any PROM LLE distally pulses intact but unable to demoe any ankle or toe motor function Left shoulder with limited rom Pain with prom no edema or point ttp CT pelvis and shoulder xrays reviewed Labs/Diagnostic Data Labs Test 10/09/24 08:26 10/08/24 19:00 10/08/24 17:26 Range/Units White Blood Count 10.7 4.4-10.8 10^3/uL Red Blood Count 3.58 L 4.0-5.20 10^6/uL Hemoglobin 10.8 L 12.2-16.2 g/dL Hematocrit 32.1 #L 36.0-46.0 % Mean Corpuscular Volume 89.9 80.0-100.0 fL Mean Corpuscular Hemoglobin 30.2 28.0-32.0 pg Mean Corpuscular Hemoglobin Concent 33.6 32.0-36.0 g/dL Red Cell Distribution Width 13.2 11.8-14.3 % Platelet Count 114 L 140-450 10^3/uL Mean Platelet Volume 9.5 6.9-10.8 fL Neutrophils (%) (Auto) 86.8 H 37.0-80.0 % Lymphocytes (%) (Auto) 7.0 L 10.0-50.0 % Monocytes (%) (Auto) 5.9 0.0-12.0 % Eosinophils (%) (Auto) 0.1 0.0-7.0 % Basophils (%) (Auto) 0.2 0.0-2.0 % Neutrophils # (Auto) 9.3 H 1.6-8.6 10 ^3/uL Lymphocytes # (Auto) 0.8 0.4-5.4 10 ^3/uL Monocytes # (Auto) 0.6 0-1.3 10 ^3/uL Eosinophils # (Auto) 0 0-0.8 10 ^3/uL Basophils # (Auto) 0 0-0.2 10 ^3/uL Nucleated Red Blood Cells 0.0 % Sodium Level 141 136-145 mmol/L Potassium Level 4.0 3.5-5.1 mmol/L Chloride Level 108 H 98-107 mmol/L Carbon Dioxide Level 25 20-31 mmol/L Anion Gap 8 5-15 Blood Urea Nitrogen 15 9-23 mg/dL Creatinine 0.61 0.550-1.02 mg/dL Glomerular Filtration Rate Calc 90 >90 mL/min BUN/Creatinine Ratio 24.6 H 10.0-20.0 Serum Glucose 142 H 74-106 mg/dL Calcium Level 9.1 8.7-10.4 mg/dL Total Bilirubin 0.8 0.2-1.0 mg/dL Aspartate Amino Transferase (AST) 51 H 13-40 U/L Alanine Aminotransferase (ALT) 53 H 7-40 U/L Alkaline Phosphatase 89 46-116 U/L Total Protein 6.1 5.7-8.2 g/dL Albumin 3.8 3.2-4.8 g/dL Urine Color Yellow Yellow Urine Clarity Turbid H Clear Urine pH 7.0 5.0-9.0 Urine Specific [place] 1.014 1.001-1.035 Urine Protein Negative Negative Urine Ketones Trace Negative Urine Blood Trace H Negative /uL Urine Nitrite Negative Negative Urine Bilirubin Negative Negative Urine Urobilinogen Normal Negative mg/dL Urine Leukocyte Esterase Negative Negative /uL Urine RBC 6 0 - 4 /hpf Urine Microscopic WBC 4 0-5 /HPF Urine Squamous Epithelial Cells None seen <5 /hpf Urine Bacteria None seen None Seen /hpf Urine Hyaline Casts Few 0 - 2 /lpf Urine Mucus Few None Seen Urine Glucose Normal Normal mg/dL Lactic Acid Level 1.8 0.4-2.0 mmol/L Troponin I High Sensitivity 7 </=34 ng/L Assessment left sup/inf pubic rami fractures left shoulder contusion limited function LUE/LLE secondary to stroke Plan/Recommendation WBAT with walker sling prn shoulder but don't limit rom or PT SHe will probably need short SNF stay FU ortho prn 6 weeks with pelvis xrays no surgery indicated Plan discussed with: Patient, Spouse, Daughter, Other (nurse) SOY STOVALL MD Oct 10, 2024 14:31
[2024-10-10 17:42] LABS: Basophils # (auto) 0 10 ^3/uL (0-0.2); Basophils % (auto) 0.2 % (0.0-2.0); Eosinophils # (auto) 0.1 10 ^3/uL (0-0.8); Eosinophils % (auto) 1.4 % (0.0-7.0); Hematocrit 32.7 % (36.0-46.0); Hemoglobin 10.7 g/dL (12.2-16.2); Lymphocytes % (auto) 11.1 % (10.0-50.0); Mean Corpuscular Hemoglobin 29.4 pg (28.0-32.0); Mean Corpuscular Hgb Conc. 32.8 g/dL (32.0-36.0); Mean Corpuscular Volume 89.6 fL (80.0-100.0); Monocytes # (auto) 0.7 10 ^3/uL (0-1.3); Monocytes % (auto) 7.5 % (0.0-12.0); Neutrophils % (auto) 79.8 % (37.0-80.0); Platelet Count (auto) 99 10^3/uL (140-450); Red Blood Cells 3.64 10^6/uL (4.0-5.20); Red Cell Distribution Width 13.1 % (11.8-14.3); White Blood Cell 8.8 10^3/uL (4.4-10.8)
[2024-10-10 17:59] LABS: Chloride 104 mmol/L (98-107)
[2024-10-10 18:00] LABS: Anion Gap 7 (5-15); Carbon Dioxide 25 mmol/L (20-31)
[2024-10-10 18:02] LABS: Calcium 8.7 mg/dL (8.7-10.4); Potassium 3.3 mmol/L (3.5-5.1); Sodium 136 mmol/L (136-145)
[2024-10-10 18:06] LABS: BUN/Creatinine Ratio 19.6 (10.0-20.0); Blood Urea Nitrogen 10 mg/dL (9-23); Magnesium 1.9 mg/dL (1.6-2.6)
[2024-10-10 18:08] LABS: Glucose 115 mg/dL (74-106)
--- NOTE | 2024-10-10 18:15 | DVHINCON2 ---
Date Seen: Oct 10, 2024 Referring Physician MD Casandra Reason for Consultation Trigeminy PVC's History of Present Illness This is an 79-year-old Austrian-speaking female patient who presents to the emergency room status post mechanical fall. The patient reports that she was walking from her restroom when suddenly she sustained a mechanical fall and landed on her left side. Imaging has revealed an acute mildly displaced fracture of the left superior and inferior pubic rami. Cardiology is being consulted at this time for trigeminy PVCs. No initial twelve lead electrocardiogram found in patient's chart. Bedside RN completed a twelve lead electrocardiogram at time of assessment which revealed sinus tachycardia with bigeminy PVCs. Significant past medical history includes hypertension, dyslip idemia, CVA with left-sided deficit, and hard of hearing. Past Medical History Past medical history reviewed. No other significant than mentioned above. Past Surgical History Denies Family History: Patient reports no known family medical history. Family History Family history reviewed. Social History Denies the use of tobacco, alcohol or illicit drugs. Allergies: Coded Allergies: NO KNOWN ALLERGIES (Unverified , 10/08/24) Home Meds Home medications reviewed. Review of Systems Constitutional: No symptom reported Ears, Nose, & Throat: No symptom reported Eyes: No symptom reported Neurological: No symptoms reported Pulmonary/Respiratory: No symptoms reported Cardiovascular: No symptom reported Gastrointestinal: No symptom reported Genitourinary: No symptom reported Musculoskeletal: Pelvic pain Skin: No symptom reported Psychiatric: No symptom reported Endocrine: No symptom reported Hematologic/Lymphatic: No symptom reported Vital Signs Vital Signs Date Time Temp Pulse Resp B/P (MAP) Pulse Ox O2 Delivery O2 Flow Rate FiO2 10/10/24 17:00 98.6 78 20 119/66 (83) 98 98.6 10/10/24 08:00 Nasal Cannula* 2 28 Physical Exam General Appearance: Cooperative. Well-developed. Well-nourished. No acute distress. Pulmonary/Respiratory: Clear, bilateral breaths sounds. Cardiovascular/Chest: Regular rate and rhythm. Peripheral Pulses: 2+ Radial (R). 2+ Radial (L). 2+ Pedal (R). 2+ Pedal (L) Abdominal Exam: Normal bowel sounds. Ankle Exam: Negative ankle edema Lower extremities: Negative lower extremity edema Neuro/Mental Status: A/OX3, coherent. Left-sided weakness Thoughts/Psych: Normal thought pattern. Appropriate mood and affect. Good judgment and insight. Appearance: No acute distress. Skin Exam: Normal inspection. Normal color. Warm and dry. Labs/Diagnostic Data Labs Test 10/10/24 17:30 10/09/24 08:26 10/08/24 19:00 10/08/24 17:26 Range/Units White Blood Count 8.8 4.4-10.8 10^3/uL Red Blood Count 3.64 L 4.0-5.20 10^6/uL Hemoglobin 10.7 L 12.2-16.2 g/dL Hematocrit 32.7 L 36.0-46.0 % Mean Corpuscular Volume 89.6 80.0-100.0 fL Mean Corpuscular Hemoglobin 29.4 28.0-32.0 pg Mean Corpuscular Hemoglobin Concent 32.8 32.0-36.0 g/dL Red Cell Distribution Width 13.1 11.8-14.3 % Platelet Count 99 L 140-450 10^3/uL Mean Platelet Volume 9.8 6.9-10.8 fL Neutrophils (%) (Auto) 79.8 37.0-80.0 % Lymphocytes (%) (Auto) 11.1 10.0-50.0 % Monocytes (%) (Auto) 7.5 0.0-12.0 % Eosinophils (%) (Auto) 1.4 0.0-7.0 % Basophils (%) (Auto) 0.2 0.0-2.0 % Neutrophils # (Auto) 7.0 1.6-8.6 10 ^3/uL Lymphocytes # (Auto) 1.0 0.4-5.4 10 ^3/uL Monocytes # (Auto) 0.7 0-1.3 10 ^3/uL Eosinophils # (Auto) 0.1 0-0.8 10 ^3/uL Basophils # (Auto) 0 0-0.2 10 ^3/uL Nucleated Red Blood Cells 0.0 % Total Bilirubin 0.8 0.2-1.0 mg/dL Aspartate Amino Transferase (AST) 51 H 13-40 U/L Alanine Aminotransferase (ALT) 53 H 7-40 U/L Alkaline Phosphatase 89 46-116 U/L Total Protein 6.1 5.7-8.2 g/dL Albumin 3.8 3.2-4.8 g/dL Urine Color Yellow Yellow Urine Clarity Turbid H Clear Urine pH 7.0 5.0-9.0 Urine Specific [place] 1.014 1.001-1.035 Urine Protein Negative Negative Urine Ketones Trace Negative Urine Blood Trace H Negative /uL Urine Nitrite Negative Negative Urine Bilirubin Negative Negative Urine Urobilinogen Normal Negative mg/dL Urine Leukocyte Esterase Negative Negative /uL Urine RBC 6 0 - 4 /hpf Urine Microscopic WBC 4 0-5 /HPF Urine Squamous Epithelial Cells None seen <5 /hpf Urine Bacteria None seen None Seen /hpf Urine Hyaline Casts Few 0 - 2 /lpf Urine Mucus Few None Seen Urine Glucose Normal Normal mg/dL Lactic Acid Level 1.8 0.4-2.0 mmol/L Troponin I High Sensitivity 7 </=34 ng/L Assessment Sinus tachycardia with trigeminy PVCs Rule out structural heart disease Hypertension Dyslipidemia History of CVA with left-sided residual deficits Hypokalemia Hard of hearing Plan/Recommendation We will continue with the following plan/recommendations (Dr. Nice): * Transthoracic echocardiogram to evaluate cardiac function * Initiate low-dose beta-marie * Monitor and replete electrolytes as needed * Close Cardiac surveillance Patient seen and examined at bedside with . Thank you for allowing us to care for this patient. Please call with any questions or concerns. Critical care time spent: 40 minutes This medical document was created using an electronic medical record system with voice recognition software and computerized dictation system. Although this document has been carefully reviewed, there might still be some phonetic and typographical errors. Occasional wrong-word or ``sound-alike substitutions may have occurred due to the inherent limitations of voice recognition software. These areas are purely typographical due to imperfections of the software programs and do not reflect any compromise in the patient's medical care. Please read the chart carefully and recognize, using context, where these substitutions have occurred. Plan discussed with: Patient NYHA Physical activity limitations: NA Date of Service: Oct 10, 2024 Billing Provider: KALPANA GAMEZ Cardiology Common Codes: [id number] INP/OBS CARE (High) Cardiology Consultation Codes: [id number] CONSULT <45MIN KALPANA GAMEZ Oct 10, 2024 18:15
[2024-10-10] MEDS: POTASSIUM EFFERVESENT TAB 25 MEQ PO ONE (18:34)
[2024-10-10] MEDS: MAGNESIUM SULFATE 1GM/100ML 100 ML IV ONE (19:12)
[2024-10-10] MEDS: CARVEDILOL 3.125 MG TAB PO SCH (21:25)
[2024-10-11] VITALS (8 sets, daily range): BP systolic 124–143; BP diastolic 40–63; PULSE 51–65; RESP 16–20; TEMP 97.4–98.3; O2SAT 97–100
[2024-10-11 11:16] LABS: Basophils # (auto) 0 10 ^3/uL (0-0.2); Basophils % (auto) 0.3 % (0.0-2.0); Eosinophils # (auto) 0.2 10 ^3/uL (0-0.8); Eosinophils % (auto) 3.3 % (0.0-7.0); Hematocrit 29.9 % (36.0-46.0); Lymphocytes # (auto) 0.7 10 ^3/uL (0.4-5.4); Lymphocytes % (auto) 12.2 % (10.0-50.0); Mean Corpuscular Hemoglobin 29.8 pg (28.0-32.0); Mean Corpuscular Hgb Conc. 33.3 g/dL (32.0-36.0); Mean Corpuscular Volume 89.5 fL (80.0-100.0); Monocytes # (auto) 0.4 10 ^3/uL (0-1.3); Monocytes % (auto) 7.7 % (0.0-12.0); Neutrophils # (auto) 4.3 10 ^3/uL (1.6-8.6); Neutrophils % (auto) 76.5 % (37.0-80.0); Platelet Count (auto) 92 10^3/uL (140-450); Red Blood Cells 3.34 10^6/uL (4.0-5.20); Red Cell Distribution Width 12.8 % (11.8-14.3); White Blood Cell 5.6 10^3/uL (4.4-10.8)
[2024-10-11 11:31] LABS: Chloride 105 mmol/L (98-107); Potassium 3.6 mmol/L (3.5-5.1); Sodium 139 mmol/L (136-145)
[2024-10-11 11:32] LABS: Anion Gap 6 (5-15); Carbon Dioxide 28 mmol/L (20-31)
[2024-10-11 11:37] LABS: BUN/Creatinine Ratio 23.3 (10.0-20.0); Blood Urea Nitrogen 10 mg/dL (9-23)
[2024-10-11 11:42] LABS: Calcium 8.6 mg/dL (8.7-10.4); Glucose 161 mg/dL (74-106)
--- NOTE | 2024-10-11 12:02 | DVHSR ---
APPROVED REPORT EXAM: Two-dimensional and M-mode echocardiogram with Doppler and color Doppler. Blood Pressure: 124/59 mmHg INDICATION Evaluate cardiac function RISK FACTORS Height: 5', Weight: 104 DIMENSIONS LVDd3.9 (3.8-5.7cm)LA (2D)3.6 (1.9-4.0cm)Aortic Root2.6 (2.0-3.7cm) LVDs1.9 (2.5-4.0cm)LA (MM) (1.9-4.0cm)Aortic Cusp Exc1.0 (1.5-2.0cm) EF (%) 81.0 (55-70%)Rt. Atrium3.9 (1.9-4.0cm)Asc. Aorta cm IVSd0.7 (0.7-1.1cm)RV (D)3.8 (1.8-2.4cm) Mitral Valve MitralMitral Stenosis E wave0.86m/sMV Mean GR.mmHg A wave1.01m/sMV Peak GR.mmHg E/A ratio0.92D MVAcm2 DECEL [id number] 1/2 Timems Aortic Valve Aortic ValveAortic Stenosis V11.13m/Vanessa Mean GR.9mmHg V22.02m/Vanessa Peak GR.16mmHg LVOT Diameter1.8 (1.8-2.4cm)Doppler AVA1.42cm2 Tricuspid Valve TR Velocity2.53m/s [id number] Other Information Quality : Technically LimitedRhythm : Technically limited study due to body habitus. Conclusion lvef 65% by visual estimate mild LVH moderate tricuspid ergurg aortic sclerosis, thickening noted
[2024-10-11] MEDS: POTASSIUM EFFERVESENT TAB 25 MEQ PO ONE (16:57)
--- NOTE | 2024-10-11 19:30 | DVHPN2 ---
Consult Progress Note Subjective Other Systems: Patient remains in normal sinus rhythm on monitoring engineer Objective vital signs Vital Sign Date Time Temp Pulse Resp B/P (MAP) Pulse Ox O2 Delivery O2 Flow Rate FiO2 10/11/24 17:00 98.2 64 20 124/53 (76) 97 98.2 10/11/24 08:00 Nasal Cannula* 2 28 Total Intake and Output 10/10/24 10/10/24 10/11/24 15:00 23:00 07:00 Intake Total 1820 ml 125 ml Output Total 800 ml 1350 ml Balance 1020 ml -1225 ml medications Current Medications Medications Dose Ordered Sig/Trina Route Start Time Stop Time Status Last Admin Dose Admin Amlodipine Besylate 5 mg DAILY PO 10/09/24 10:00 10/11/24 10:07 5 MG Atorvastatin Calcium 20 mg HS PO 10/08/24 22:00 10/10/24 21:17 20 MG Hydralazine HCl 10 mg Q6HP PRN IV 10/08/24 20:30 Sodium Chloride 1,000 ml @ 60 mls/hr [id number] IV 10/08/24 20:30 10/11/24 16:57 60 MLS/HR Acetaminophen/ Hydrocodone Bitart 1 tab Q4HP PRN PO 10/08/24 20:30 10/11/24 05:40 1 TAB Ondansetron HCl 4 mg Q4HP PRN IV 10/08/24 20:30 Docusate Sodium 100 mg BIDPRN PRN PO 10/08/24 20:30 10/09/24 21:27 100 MG Acetaminophen 650 mg Q6HP PRN PO 10/08/24 20:30 Morphine Sulfate 2 mg Q4HPRN PRN IV 10/08/24 20:30 10/10/24 18:36 2 MG Nitroglycerin 0.4 mg Q5MINP PRN SL 10/08/24 22:00 Morphine Sulfate 2 mg Q30M PRN IV 10/08/24 22:00 Ceftriaxone Sodium 50 ml @ 100 mls/hr Q24H IV 10/09/24 04:00 10/11/24 05:37 100 MLS/HR Carvedilol 3.125 mg Q12HR PO 10/10/24 22:00 10/11/24 10:07 3.125 MG Examination: GENERAL:Normal, LUNGS:Normal, CVS:Normal, NEURO:Normal laboratory and microbiology Laboratory Tests 10/11/24 10:28 Test 10/11/24 10:28 Range/Units Serum Glucose 161 H 74-106 mg/dL Problem List/Assessment/Plan Problem List/Assessment/Plan Sinus tachycardia with trigeminy PVCs, now normal sinus rhythm Hypertension Dyslipidemia Acute pubic rami fractures History of CVA with left-sided residual deficits Hypokalemia Hard of hearing Plan/Recommendation (Dr. Nice): * Transthoracic echocardiogram reveals EF 65% * Continue low-dose beta-marie * Monitor and replete electrolytes as needed * Close Cardiac surveillance Patient seen and examined at bedside with . Patient now back in normal sinus rhythm without ectopy. There is no further inpatient cardiac workup indicated at this time. Thank you for allowing us to care for this patient. Please call with any questions or concerns. This medical document was created using an electronic medical record system with voice recognition software and computerized dictation system. Although this document has been carefully reviewed, there might still be some phonetic and typographical errors. Occasional wrong-word or ``sound-alike substitutions may have occurred due to the inherent limitations of voice recognition software. These areas are purely typographical due to imperfections of the software programs and do not reflect any compromise in the patient's medical care. Please read the chart carefully and recognize, using context, where these substitutions have occurred. Plan discussed with: Patient Date of Service: Oct 11, 2024 Billing Provider: KALPANA GAMEZ Common Visit Codes: [id number] INP/OBS CARE(HIGH) KALPANA GAMEZ Oct 11, 2024 19:30
[2024-10-12] VITALS (8 sets, daily range): BP systolic 109–134; BP diastolic 42–62; PULSE 47–85; RESP 14–19; TEMP 97.8–98.8; O2SAT 92–98
--- NOTE | 2024-10-12 13:10 | DVHPN2 ---
Reviewed: Care Plan, H&P, Labs, Medications, Previous Orders, Radiology Changes from previous H/P or p: No Changes General: Per HPI Eyes: No Pain, No Vision change, No Conjunctivae inflammation, No Eyelid inflammation, No Other, No Redness ENT: No Ear pain, No Ear discharge, No Nose pain, No Nose discharge, No Nose congestion, No Mouth pain, No Mouth swelling, No Throat pain, No Throat swelling, No Other Cardiovascular: No Chest Pain, No Palpitations, No Orthopnea, No Paroxysmal Noc. Dyspnea, No Edema, No Lt Headedness, No Other Respiratory: No Cough, No Dry, No Shortness of breath, No SOB with excertion, No Wheezing, No Hemoptysis, No Pleuritic Pain, No Sputum, No Other Gastrointestinal: No Nausea, No Vomiting, No Abdominal Pain, No Diarrhea, No Constipation, No Melena, No Hematochezia, No Other Genitourinary: No Dysuria, No Frequency, No Incontinence, No Hematuria, No Retention, No Other Musculoskeletal: other (Left hip pain); No neck pain, No shoulder pain, No arm pain, No back pain, No hand pain, No leg pain, No foot pain Skin: No Rash, No Lesions, No Jaundice, No Bruising, No Other Objective Vitals Vital Signs Date Time Temp Pulse Resp B/P (MAP) Pulse Ox O2 Delivery O2 Flow Rate FiO2 10/12/24 09:16 66 134/62 10/12/24 09:00 97.8 16 96 97.8 10/11/24 20:00 Nasal Cannula* 2 28 Intake/Output Intake and Output 10/12/24 07:00 Intake Total 850 ml Output Total 2775 ml Balance -1925 ml Intake Oral 740 ml IV Total 110 ml Output Urine Total 2775 ml General Appearance: Alert, Oriented X3, Cooperative, No acute distress HEENT: Atraumatic, PERRLA, EOMI, Mucous membr. moist/pink Neck: Supple Lungs: Clear to auscultation, Normal air movement Cardiovascular: Regular rate, Normal S1, Normal S2, No murmurs, Gallops Abdomen: Normal bowel sounds, Soft, No tenderness Musculoskeletal: Other (Limited range of motion bilateral lower extremity due to pelvic fracture) Neuro: Cranial nerves 3-12 NL Psych/Mental Status: Mental status NL Medications Current Medications Medications Dose Ordered Sig/Trina Route Start Time Stop Time Status Last Admin Dose Admin Amlodipine Besylate 5 mg DAILY PO 10/09/24 10:00 10/12/24 09:15 5 MG Atorvastatin Calcium 20 mg HS PO 10/08/24 22:00 10/11/24 21:51 20 MG Hydralazine HCl 10 mg Q6HP PRN IV 10/08/24 20:30 Sodium Chloride 1,000 ml @ 60 mls/hr [id number] IV 10/08/24 20:30 10/12/24 07:50 60 MLS/HR Acetaminophen/ Hydrocodone Bitart 1 tab Q4HP PRN PO 10/08/24 20:30 10/12/24 09:14 1 TAB Ondansetron HCl 4 mg Q4HP PRN IV 10/08/24 20:30 Docusate Sodium 100 mg BIDPRN PRN PO 10/08/24 20:30 10/11/24 21:50 100 MG Acetaminophen 650 mg Q6HP PRN PO 10/08/24 20:30 Morphine Sulfate 2 mg Q4HPRN PRN IV 10/08/24 20:30 10/10/24 18:36 2 MG Nitroglycerin 0.4 mg Q5MINP PRN SL 10/08/24 22:00 Morphine Sulfate 2 mg Q30M PRN IV 10/08/24 22:00 Ceftriaxone Sodium 50 ml @ 100 mls/hr Q24H IV 10/09/24 04:00 10/12/24 03:32 100 MLS/HR Carvedilol 3.125 mg Q12HR PO 10/10/24 22:00 10/12/24 09:16 3.125 MG Laboratory Results Laboratory Tests 10/11/24 10:28 Urinalysis Test 10/08/24 19:00 Urine Color Yellow (Yellow) Urine Clarity Turbid (Clear) H Urine pH 7.0 (5.0-9.0) Urine Specific [place] 1.014 (1.001-1.035) Urine Protein Negative (Negative) Urine Ketones Trace (Negative) Urine Blood Trace /uL (Negative) H Urine Nitrite Negative (Negative) Urine Bilirubin Negative (Negative) Urine Urobilinogen Normal mg/dL (Negative) Urine Leukocyte Esterase Negative /uL (Negative) Urine RBC 6 /hpf (0 - 4) Urine Microscopic WBC 4 /HPF (0-5) Urine Squamous Epithelial Cells None seen /hpf (<5) Urine Bacteria None seen /hpf (None Seen) Urine Hyaline Casts Few /lpf (0 - 2) Urine Mucus Few (None Seen) Urine Glucose Normal mg/dL (Normal) Labs and/or images reviewed: Labs reviewed by me, Image(s) reviewed by me Assessment/Plan Assessment/Plan Generalized weakness Fall with injury Fracture of pubic ramus Leukocytosis, unspecified Shoulder contusion difficult to ambulate weakness failure to thrive underweight protein-calorie malnutrition Plan: Continuing current management. Continuing with pain medication. Orthopedic surgeon input appreciated. The patient needs a sling for her shoulder. The patient need weight-bearing as tolerated with physical therapy. Pain medication for pain control. The patient may need long-term home facility. Discussed with and daughter at bedside. They wanted to think about it. 10/11/2024: still very weak, unable to walk, even for a few feet. will consult case management/psychologist social for SNF (family at bedside and agreed) This medical document was created using an electronic medical record system with [employer] direct computerized dictation system. Although this document has been carefully reviewed, there may still be some phonetic and typographical errors. These areas are purely typographical due to imperfections of the software programs, and do not reflect any compromise in the patient's medical care. Plan discussed with: Patient, Spouse, Daughter Date of Service: Oct 11, 2024 Billing Provider: ISREAL ENRIQUE DO Common Visit Codes: [id number] INP/OBS CARE(HIGH) ISREAL ENRIQUE DO Oct 12, 2024 13:10
--- NOTE | 2024-10-12 13:17 | DVHPN2 ---
Reviewed: Care Plan, H&P, Labs, Medications, Previous Orders, Radiology Changes from previous H/P or p: No Changes General: Per HPI Eyes: No Pain, No Vision change, No Conjunctivae inflammation, No Eyelid inflammation, No Other, No Redness ENT: No Ear pain, No Ear discharge, No Nose pain, No Nose discharge, No Nose congestion, No Mouth pain, No Mouth swelling, No Throat pain, No Throat swelling, No Other Cardiovascular: No Chest Pain, No Palpitations, No Orthopnea, No Paroxysmal Noc. Dyspnea, No Edema, No Lt Headedness, No Other Respiratory: No Cough, No Dry, No Shortness of breath, No SOB with excertion, No Wheezing, No Hemoptysis, No Pleuritic Pain, No Sputum, No Other Gastrointestinal: No Nausea, No Vomiting, No Abdominal Pain, No Diarrhea, No Constipation, No Melena, No Hematochezia, No Other Genitourinary: No Dysuria, No Frequency, No Incontinence, No Hematuria, No Retention, No Other Musculoskeletal: other (Left hip pain); No neck pain, No shoulder pain, No arm pain, No back pain, No hand pain, No leg pain, No foot pain Skin: No Rash, No Lesions, No Jaundice, No Bruising, No Other Objective Vitals Vital Signs Date Time Temp Pulse Resp B/P (MAP) Pulse Ox O2 Delivery O2 Flow Rate FiO2 10/12/24 09:16 66 134/62 10/12/24 09:00 97.8 16 96 97.8 10/11/24 20:00 Nasal Cannula* 2 28 Intake/Output Intake and Output 10/12/24 07:00 Intake Total 850 ml Output Total 2775 ml Balance -1925 ml Intake Oral 740 ml IV Total 110 ml Output Urine Total 2775 ml General Appearance: Alert, Oriented X3, Cooperative, No acute distress HEENT: Atraumatic, PERRLA, EOMI, Mucous membr. moist/pink Neck: Supple Lungs: Clear to auscultation, Normal air movement Cardiovascular: Regular rate, Normal S1, Normal S2, No murmurs, Gallops Abdomen: Normal bowel sounds, Soft, No tenderness Musculoskeletal: Other (Limited range of motion bilateral lower extremity due to pelvic fracture) Neuro: Cranial nerves 3-12 NL Psych/Mental Status: Mental status NL Medications Current Medications Medications Dose Ordered Sig/Trina Route Start Time Stop Time Status Last Admin Dose Admin Amlodipine Besylate 5 mg DAILY PO 10/09/24 10:00 10/12/24 09:15 5 MG Atorvastatin Calcium 20 mg HS PO 10/08/24 22:00 10/11/24 21:51 20 MG Hydralazine HCl 10 mg Q6HP PRN IV 10/08/24 20:30 Sodium Chloride 1,000 ml @ 60 mls/hr [id number] IV 10/08/24 20:30 10/12/24 07:50 60 MLS/HR Acetaminophen/ Hydrocodone Bitart 1 tab Q4HP PRN PO 10/08/24 20:30 10/12/24 09:14 1 TAB Ondansetron HCl 4 mg Q4HP PRN IV 10/08/24 20:30 Docusate Sodium 100 mg BIDPRN PRN PO 10/08/24 20:30 10/11/24 21:50 100 MG Acetaminophen 650 mg Q6HP PRN PO 10/08/24 20:30 Morphine Sulfate 2 mg Q4HPRN PRN IV 10/08/24 20:30 10/10/24 18:36 2 MG Nitroglycerin 0.4 mg Q5MINP PRN SL 10/08/24 22:00 Morphine Sulfate 2 mg Q30M PRN IV 10/08/24 22:00 Ceftriaxone Sodium 50 ml @ 100 mls/hr Q24H IV 10/09/24 04:00 10/12/24 03:32 100 MLS/HR Carvedilol 3.125 mg Q12HR PO 10/10/24 22:00 10/12/24 09:16 3.125 MG Laboratory Results Laboratory Tests 10/11/24 10:28 Urinalysis Test 10/08/24 19:00 Urine Color Yellow (Yellow) Urine Clarity Turbid (Clear) H Urine pH 7.0 (5.0-9.0) Urine Specific [place] 1.014 (1.001-1.035) Urine Protein Negative (Negative) Urine Ketones Trace (Negative) Urine Blood Trace /uL (Negative) H Urine Nitrite Negative (Negative) Urine Bilirubin Negative (Negative) Urine Urobilinogen Normal mg/dL (Negative) Urine Leukocyte Esterase Negative /uL (Negative) Urine RBC 6 /hpf (0 - 4) Urine Microscopic WBC 4 /HPF (0-5) Urine Squamous Epithelial Cells None seen /hpf (<5) Urine Bacteria None seen /hpf (None Seen) Urine Hyaline Casts Few /lpf (0 - 2) Urine Mucus Few (None Seen) Urine Glucose Normal mg/dL (Normal) Assessment/Plan Assessment/Plan Generalized weakness Fall with injury Fracture of pubic ramus Leukocytosis, unspecified Shoulder contusion difficult to ambulate weakness failure to thrive underweight protein-calorie malnutrition Plan: Continuing current management. Continuing with pain medication. Orthopedic surgeon input appreciated. The patient needs a sling for her shoulder. The patient need weight-bearing as tolerated with physical therapy. Pain medication for pain control. The patient may need jail home facility. Discussed with and daughter at bedside. They wanted to think about it. 10/11/2024: still very weak, unable to walk, even for a few feet. will consult case management/social insurance adviser for SNF (family at bedside and agreed) 10/12/2024: pending SNF placement. PT/OT to evaluate pt This medical document was created using an electronic medical record system with [employer] direct computerized dictation system. Although this document has been carefully reviewed, there may still be some phonetic and typographical errors. These areas are purely typographical due to imperfections of the software programs, and do not reflect any compromise in the patient's medical care. Plan discussed with: Daughter Date of Service: Oct 12, 2024 Billing Provider: ISREAL ENRIQUE DO Common Visit Codes: [id number] INP/OBS CARE(HIGH) ISREAL ENRIQUE DO Oct 12, 2024 13:17
--- NOTE | 2024-10-12 14:33 | ECG ---
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
[2024-10-13] VITALS (8 sets, daily range): BP systolic 132–151; BP diastolic 43–79; PULSE 50–70; RESP 17–18; TEMP 97.5–99; O2SAT 17–97
--- NOTE | 2024-10-13 13:06 | DVHPN2 ---
Reviewed: Care Plan, H&P, Labs, Medications, Previous Orders, Radiology Changes from previous H/P or p: No Changes General: Per HPI Eyes: No Pain, No Vision change, No Conjunctivae inflammation, No Eyelid inflammation, No Other, No Redness ENT: No Ear pain, No Ear discharge, No Nose pain, No Nose discharge, No Nose congestion, No Mouth pain, No Mouth swelling, No Throat pain, No Throat swelling, No Other Cardiovascular: No Chest Pain, No Palpitations, No Orthopnea, No Paroxysmal Noc. Dyspnea, No Edema, No Lt Headedness, No Other Respiratory: No Cough, No Dry, No Shortness of breath, No SOB with excertion, No Wheezing, No Hemoptysis, No Pleuritic Pain, No Sputum, No Other Gastrointestinal: No Nausea, No Vomiting, No Abdominal Pain, No Diarrhea, No Constipation, No Melena, No Hematochezia, No Other Genitourinary: No Dysuria, No Frequency, No Incontinence, No Hematuria, No Retention, No Other Musculoskeletal: other (Left hip pain); No neck pain, No shoulder pain, No arm pain, No back pain, No hand pain, No leg pain, No foot pain Skin: No Rash, No Lesions, No Jaundice, No Bruising, No Other Objective Vitals Vital Signs Date Time Temp Pulse Resp B/P (MAP) Pulse Ox O2 Delivery O2 Flow Rate FiO2 10/13/24 10:24 136/63 10/13/24 10:23 63 10/13/24 07:45 Nasal Cannula* 2 28 10/13/24 05:00 98.4 17 95 98.4 Intake/Output Intake and Output 10/13/24 07:00 Intake Total 850 ml Output Total 2550 ml Balance -1700 ml Intake Oral 850 ml Output Urine Total 2550 ml General Appearance: Alert, Oriented X3, Cooperative, No acute distress HEENT: Atraumatic, PERRLA, EOMI, Mucous membr. moist/pink Neck: Supple Lungs: Clear to auscultation, Normal air movement Cardiovascular: Regular rate, Normal S1, Normal S2, No murmurs, Gallops Abdomen: Normal bowel sounds, Soft, No tenderness Musculoskeletal: Other (Limited range of motion bilateral lower extremity due to pelvic fracture) Neuro: Cranial nerves 3-12 NL Psych/Mental Status: Mental status NL Medications Current Medications Medications Dose Ordered Sig/Trina Route Start Time Stop Time Status Last Admin Dose Admin Amlodipine Besylate 5 mg DAILY PO 10/09/24 10:00 10/13/24 10:24 5 MG Atorvastatin Calcium 20 mg HS PO 10/08/24 22:00 10/12/24 21:44 20 MG Hydralazine HCl 10 mg Q6HP PRN IV 10/08/24 20:30 Sodium Chloride 1,000 ml @ 60 mls/hr [id number] IV 10/08/24 20:30 10/13/24 02:38 60 MLS/HR Acetaminophen/ Hydrocodone Bitart 1 tab Q4HP PRN PO 10/08/24 20:30 10/12/24 09:14 1 TAB Ondansetron HCl 4 mg Q4HP PRN IV 10/08/24 20:30 Docusate Sodium 100 mg BIDPRN PRN PO 10/08/24 20:30 10/11/24 21:50 100 MG Acetaminophen 650 mg Q6HP PRN PO 10/08/24 20:30 Morphine Sulfate 2 mg Q4HPRN PRN IV 10/08/24 20:30 10/12/24 18:22 2 MG Nitroglycerin 0.4 mg Q5MINP PRN SL 10/08/24 22:00 Morphine Sulfate 2 mg Q30M PRN IV 10/08/24 22:00 Ceftriaxone Sodium 50 ml @ 100 mls/hr Q24H IV 10/09/24 04:00 10/13/24 05:25 100 MLS/HR Carvedilol 3.125 mg Q12HR PO 10/10/24 22:00 10/13/24 10:23 3.125 MG Laboratory Results Laboratory Tests 10/11/24 10:28 Urinalysis Test 10/08/24 19:00 Urine Color Yellow (Yellow) Urine Clarity Turbid (Clear) H Urine pH 7.0 (5.0-9.0) Urine Specific [place] 1.014 (1.001-1.035) Urine Protein Negative (Negative) Urine Ketones Trace (Negative) Urine Blood Trace /uL (Negative) H Urine Nitrite Negative (Negative) Urine Bilirubin Negative (Negative) Urine Urobilinogen Normal mg/dL (Negative) Urine Leukocyte Esterase Negative /uL (Negative) Urine RBC 6 /hpf (0 - 4) Urine Microscopic WBC 4 /HPF (0-5) Urine Squamous Epithelial Cells None seen /hpf (<5) Urine Bacteria None seen /hpf (None Seen) Urine Hyaline Casts Few /lpf (0 - 2) Urine Mucus Few (None Seen) Urine Glucose Normal mg/dL (Normal) Assessment/Plan Assessment/Plan Generalized weakness Fall with injury Fracture of pubic ramus Leukocytosis, unspecified Shoulder contusion difficult to ambulate weakness failure to thrive underweight protein-calorie malnutrition Plan: Continuing current management. Continuing with pain medication. Orthopedic surgeon input appreciated. The patient needs a sling for her shoulder. The patient need weight-bearing as tolerated with physical therapy. Pain medication for pain control. The patient may need [facility] home facility. Discussed with and daughter at bedside. They wanted to think about it. 10/11/2024: still very weak, unable to walk, even for a few feet. will consult case management/bilingual social worker for SNF (family at bedside and agreed) 10/12/2024: pending SNF placement. PT/OT to evaluate pt 10/13/2024: pending SNF placement. Discussed with nursing and family at bedside This medical document was created using an electronic medical record system with [employer] direct computerized dictation system. Although this document has been carefully reviewed, there may still be some phonetic and typographical errors. These areas are purely typographical due to imperfections of the software programs, and do not reflect any compromise in the patient's medical care. Plan discussed with: Daughter My Orders Orders - ISREAL ENRIQUE DO Procedure Category Date Status Time Pt Request For Service PT 10/12/24 Logged 13:10 Date of Service: Oct 13, 2024 Billing Provider: ISREAL ENRIQUE DO Common Visit Codes: [id number] INP/OBS CARE(HIGH) ISREAL ENRIQUE DO Oct 13, 2024 13:06
[2024-10-14 01:00] VITALS: BP 145/45; PULSE 61; RESP 18; TEMP 98.6; O2SAT 96
[2024-10-14 05:00] VITALS: BP 145/53; PULSE 58; RESP 18; TEMP 98.2; O2SAT 97
[2024-10-14 08:00] VITALS: PULSE 60; PULSE 62; RESP 15
[2024-10-14 09:00] VITALS: BP 132/51; PULSE 60; RESP 15; TEMP 97.9; O2SAT 95
[2024-10-14 12:44] VITALS: BP 137/48; PULSE 58; RESP 15; TEMP 97.5; O2SAT 95
--- NOTE | 2024-10-14 12:53 | MEDREC ---
[facility] Intervention Section I [facility] Intervention: Review courses of therapy (PLEASE CONSIDER DISCONTINUING CEFTRIAXONE IF THERE IS NO MORE CONCERN FOR INFECTION) MAUREEN PONCE Oct 14, 2024 12:53
--- NOTE | 2024-10-14 13:42 | DVHDS2 ---
Discharge Summary Date of Admission Oct 08, 2024 at 21:48 Date of Discharge: Oct 14, 2024 Labs/Diagnostic Data: Laboratory Results Test 10/11/24 10:28 10/10/24 17:30 10/09/24 08:26 10/08/24 19:00 White Blood Count 5.6 10^3/uL (4.4-10.8) Red Blood Count 3.34 10^6/uL (4.0-5.20) Hemoglobin 10.0 g/dL (12.2-16.2) Hematocrit 29.9 % (36.0-46.0) Mean Corpuscular Volume 89.5 fL (80.0-100.0) Mean Corpuscular Hemoglobin 29.8 pg (28.0-32.0) Mean Corpuscular Hemoglobin Concent 33.3 g/dL (32.0-36.0) Red Cell Distribution Width 12.8 % (11.8-14.3) Platelet Count 92 10^3/uL (140-450) Mean Platelet Volume 10.3 fL (6.9-10.8) Neutrophils (%) (Auto) 76.5 % (37.0-80.0) Lymphocytes (%) (Auto) 12.2 % (10.0-50.0) Monocytes (%) (Auto) 7.7 % (0.0-12.0) Eosinophils (%) (Auto) 3.3 % (0.0-7.0) Basophils (%) (Auto) 0.3 % (0.0-2.0) Neutrophils # (Auto) 4.3 10 ^3/uL (1.6-8.6) Lymphocytes # (Auto) 0.7 10 ^3/uL (0.4-5.4) Monocytes # (Auto) 0.4 10 ^3/uL (0-1.3) Eosinophils # (Auto) 0.2 10 ^3/uL (0-0.8) Basophils # (Auto) 0 10 ^3/uL (0-0.2) Nucleated Red Blood Cells 0.0 % Sodium Level 139 mmol/L (136-145) Potassium Level 3.6 mmol/L (3.5-5.1) Chloride Level 105 mmol/L (98-107) Carbon Dioxide Level 28 mmol/L (20-31) Anion Gap 6 (5-15) Blood Urea Nitrogen 10 mg/dL (9-23) Creatinine 0.43 mg/dL (0.550-1.02) Glomerular Filtration Rate Calc 98 mL/min (>90) BUN/Creatinine Ratio 23.3 (10.0-20.0) Serum Glucose 161 mg/dL (74-106) Calcium Level 8.6 mg/dL (8.7-10.4) Magnesium Level 1.9 mg/dL (1.6-2.6) Thyroid Stimulating Hormone (TSH) 0.48 uIU/mL (0.55-4.78) Total Bilirubin 0.8 mg/dL (0.2-1.0) Aspartate Amino Transferase (AST) 51 U/L (13-40) Alanine Aminotransferase (ALT) 53 U/L (7-40) Alkaline Phosphatase 89 U/L (46-116) Total Protein 6.1 g/dL (5.7-8.2) Albumin 3.8 g/dL (3.2-4.8) Urine Color Yellow (Yellow) Urine Clarity Turbid (Clear) Urine pH 7.0 (5.0-9.0) Urine Specific [place] 1.014 (1.001-1.035) Urine Protein Negative (Negative) Urine Ketones Trace (Negative) Urine Blood Trace /uL (Negative) Urine Nitrite Negative (Negative) Urine Bilirubin Negative (Negative) Urine Urobilinogen Normal mg/dL (Negative) Urine Leukocyte Esterase Negative /uL (Negative) Urine RBC 6 /hpf (0 - 4) Urine Microscopic WBC 4 /HPF (0-5) Urine Squamous Epithelial Cells None seen /hpf (<5) Urine Bacteria None seen /hpf (None Seen) Urine Hyaline Casts Few /lpf (0 - 2) Urine Mucus Few (None Seen) Urine Glucose Normal mg/dL (Normal) Test 10/08/24 17:26 Lactic Acid Level 1.8 mmol/L (0.4-2.0) Troponin I High Sensitivity 7 ng/L (</=34) Other Laboratory Tests 10/11/24 10:28 Brief Hx & Hospital Course: Generalized weakness Fall with injury Fracture of pubic ramus Leukocytosis, unspecified Shoulder contusion difficult to ambulate weakness failure to thrive underweight protein-calorie malnutrition Plan: Continuing current management. Continuing with pain medication. Orthopedic surgeon input appreciated. The patient needs a sling for her shoulder. The patient need weight-bearing as tolerated with physical therapy. Pain medication for pain control. The patient may need long-term home facility. Discussed with and daughter at bedside. They wanted to think about it. 10/11/2024: still very weak, unable to walk, even for a few feet. will consult case management/protective services social worker for SNF (family at bedside and agreed) 10/12/2024: pending SNF placement. PT/OT to evaluate pt 10/13/2024: pending SNF placement. Discussed with nursing and family at bedside 10/14/2024: sending to [facility] This medical document was created using an electronic medical record system with [employer] direct computerized dictation system. Although this document has been carefully reviewed, there may still be some phonetic and typographical errors. These areas are purely typographical due to imperfections of the software programs, and do not reflect any compromise in the patient's medical care. Condition at Discharge: Good Final Diagnosis/Problems List see above Discharge Disposition: Shelter Facility Discharge Instruct/Medications Diet: Cardiac 2g Na,low cholest Activity: No Restrictions, As Tolerated Discharge Statement: "Patient was advised to return to the ER or call 911 if any headaches, dizziness, shortness of breath, chest pain, abdominal pain, bleeding, fevers, or worsening of medical condition. Patient was counseled about treatment plan, medications, possible side effects, patientverbalized understanding. All questions were answered to the best of my ability. This discharge took greater then 30 minutes in planning, reviewing documentation, counseling the patient, and discussing with other team members." ASSESSMENT ASSESSMENT Assessment Date of Service: Oct 14, 2024 Billing Provider: ISREAL ENRIQUE DO Common Visit Codes: [id number] DISCH DAY >30min ISREAL ENRIQUE DO Oct 14, 2024 13:42
[2024-10-14 14:05] VITALS: BP 137/48; PULSE 58; RESP 19; TEMP 97.8
== END 2024-10-14 14:38 | DRG 535 ==
LOC: ER 15:06 → EDBD 15:06 → TELE 21:48 → TELE-WESTW 21:49 → OVERFLOW 10-11 15:25 → WEST WING 10-11 15:46 → OVERFLOW 10-12 13:16 → TELE-WESTW 10-12 13:31
PROVIDERS: ADMIT Nurse Practitioner Family; ATTEND Internal Medicine
DX: S32.592A Other specified fracture of left pubis, initial encounter for closed fracture (principal); E43 Unspecified severe protein-calorie malnutrition; R62.7 Adult failure to thrive; D72.829 Elevated white blood cell count, unspecified; E87.6 Hypokalemia; E78.5 Hyperlipidemia, unspecified; I10 Essential (primary) hypertension; S40.012A Contusion of left shoulder, initial encounter; I49.3 Ventricular premature depolarization; Z86.73 Personal history of transient ischemic attack (TIA), and cerebral infarction without residual deficits; Z68.20 Body mass index [BMI] 20.0-20.9, adult; W18.39XA Other fall on same level, initial encounter; Y93.89 Activity, other specified; Y92.89 Other specified places as the place of occurrence of the external cause; Y99.8 Other external cause status
CPT/HCPCS: 36415; 73030; 73700; 80048; 80053; 81001; 83605; 83735; 84443; 84484; 85025; 93005; 93306; 97110; 97116; 97163; 97530; G0378; J2405